=== PATIENT | female | born 1985 | race Caucasian/White ===

== ENCOUNTER 2018-07-15 07:07 | Day surgery (SDC) | payer BC ==
[~2018-07-15] VITALS: Ht 160 cm; Wt 91.0 kg
[~2018-07-15 07:07] MED LIST: CITA20 PO
== END 2018-07-15 10:05 | disposition home or self-care (01) ==
LOC: ORSCSDS 07:07
PROVIDERS: Otolaryngology
PROC: 0CBPXZZ Excision of Tonsils, External Approach (ICD-10-PCS; principal; 2018-07-15 08:15)
DX: G47.33 Obstructive sleep apnea (adult) (pediatric) (principal); J35.01 Chronic tonsillitis; R06.83 Snoring; J45.909 Unspecified asthma, uncomplicated; E66.01 Morbid (severe) obesity due to excess calories; Z68.35 Body mass index [BMI] 35.0-35.9, adult; Z79.899 Other long term (current) drug therapy
CPT/HCPCS: 88304; J0330; J1100; J2250; J2405; J3010; J7120